=== PATIENT | male | born 1990 | race Caucasian/White ===

== ENCOUNTER 2021-06-24 01:47 | Outpatient (CLI) | payer MEDICAID, SELFPAY | END 2021-06-24 01:48 | disposition home or self-care (01) | LOC: LBO 01:48 | PROVIDERS: PCP Family Medicine; Visit Provider Nurse Practitioner Gerontology ==

== ENCOUNTER 2021-06-27 15:10 | Outpatient (CLI) | payer OTHER, MEDICAID, SELFPAY | END 2021-06-27 15:11 | disposition home or self-care (01) | PROVIDERS: PCP Family Medicine; Visit Provider Nurse Practitioner Gerontology ==

== ENCOUNTER 2021-07-26 03:06 | Outpatient (CLI) | payer OTHER, MEDICAID, SELFPAY ==
[2021-07-26 16:29] LABS: ALT 21 U/L (16-63); AST 15 U/L (15-37); Albumin 4.2 g/dL (3.4-5.0); Alkaline Phosphatase 58 U/L (46-116); Anion Gap 9.5 mmol/L (3-11); BUN 13 mg/dL (7-18); CO2 25.5 mmol/L (21.0-32.0); Calcium 8.6 mg/dL (8.5-10.1); Calculated LDL 54 mg/dL (<100); Chloride 107 mmol/L (98-107); Cholesterol 126 mg/dL (<200); Glucose 102 mg/dL (74-106); HDL Cholesterol 55 mg/dL (40-60); Potassium 4.1 mmol/L (3.5-5.1); Sodium 142 mmol/L (136-145); Total Protein 6.6 g/dL (6.4-8.2); Triglyceride 85 mg/dL (<150)
[2021-07-27 10:45] LABS: Hepatitis C Ab w Rflx HCV PCR Negative (Negative)
[2021-07-27 10:49] LABS: HIV-1/2 Ag & Ab Screen Negative (Negative)
== END 2021-07-26 03:07 | disposition home or self-care (01) ==
LOC: LBO 03:06
PROVIDERS: PCP Family Medicine; Visit Provider Nurse Practitioner Gerontology
DX: Z13.220 Encounter for screening for lipoid disorders (principal); Z11.3 Encounter for screening for infections with a predominantly sexual mode of transmission; Z11.4 Encounter for screening for human immunodeficiency virus [HIV]; Z11.59 Encounter for screening for other viral diseases
CPT/HCPCS: 36415; 80053; 80061; 86803; 87389